=== PATIENT | male | born 1960 | race Caucasian/White ===

== ENCOUNTER 2024-02-15 11:09 | Day surgery (SDC) | payer MEDICARE, MEDICAID ==
[2024-02-15] VITALS (12 sets, daily range): BP systolic 118–163; BP diastolic 79–99; PULSE 53–64; RESP 13–17; TEMP 98; O2SAT 92–96
[~2024-02-15] VITALS: Ht 172.7 cm; Wt 100.6 kg
[~2024-02-15 11:09] MED LIST: ACET-1008 PO; ALBU8HFA PO; ASPI81TA96 PO; CALC500T11 PO; CYCL-394 PO; DOCU100C59 PO; DUTA0.5C40 PO; ESOM40CA17 PO; FLO0.4C PO; LACT1CAP65 PO; MELATONIN10 MG PO
[2024-02-15] MEDS ORDERED: nitroGLYCERIN 0.4mg SUBLingual tab SL PRN (11:40)
[2024-02-15] MEDS: diphenhydrAMINE 25mg capsule PO PRN (12:04)
[2024-02-15] MEDS: normal saline 1,000 ML IV SCH (12:05)
[2024-02-15] MEDS: LORazepam 0.5 MG tablet PO PRN (12:05)
[2024-02-15 12:07] LABS: BASOPHILS # (AUTO) 0.1 X10'3 (0-0.2); BASOPHILS % (AUTO) 0.5 % (0-1); EOSINOPHILS # (AUTO) 0.4 X10'3 (0-0.9); EOSINOPHILS % (AUTO) 3.4 % (0-6); HEMATOCRIT 39.5 % (42.0-52.0); HEMOGLOBIN 13.2 g/dl (14.0-17.9); LYMPHOCYTES # (AUTO) 1.4 X10'3 (1.1-4.8); LYMPHOCYTES % (AUTO) 11.3 % (21-51); MEAN CORPUSCULAR HEMOGLOBIN 28.6 PG (27.0-31.0); MEAN CORPUSCULAR HGB CONC 33.5 g/dL (33.0-36.5); MEAN CORPUSCULAR VOLUME 85.5 FL (78-98); MEAN PLATELET VOLUME 8.2 FL (7.4-10.4); MONOCYTES # (AUTO) 0.7 X10'3 (0-0.9); NEUTROPHILS # (AUTO) 9.5 X10'3 (1.8-7.7); NEUTROPHILS % (AUTO) 78.8 % (42-75); PLATELET COUNT 274 X10'3 (140-440); RED BLOOD COUNT 4.62 X10'6 (4.70-6.10); RED CELL DISTRIBUTION WIDTH 15.3 % (11.5-14.5); WHITE BLOOD COUNT 12.1 X10'3 (4.5-11.0)
[2024-02-15] MEDS ORDERED: AMLO5TAB16 PO (12:13)
[2024-02-15] MEDS ORDERED: CLON0.1T2 PO (12:13)
[2024-02-15] MEDS ORDERED: CAPT50TA4 PO (12:13)
[2024-02-15] MEDS ORDERED: MULT-1085 PO (12:13)
[2024-02-15] MEDS ORDERED: ALBU18HF2 INH (12:13)
[2024-02-15] MEDS ORDERED: POLY119P2 PO (12:13)
[2024-02-15] MEDS ORDERED: FLUT1BLS16 INH (12:13)
[2024-02-15] MEDS ORDERED: BISA-95 PO (12:13)
[2024-02-15] MEDS ORDERED: METO-411 PO (12:13)
[2024-02-15] MEDS ORDERED: TERB250T89 PO (12:13)
[2024-02-15] MEDS ORDERED: BACL10TA2 PO (12:13)
[2024-02-15] MEDS ORDERED: SILD100T70 PO (12:13)
[2024-02-15] MEDS ORDERED: HYDR12.55 PO (12:13)
[2024-02-15] MEDS ORDERED: CELE-148 PO (12:13)
[2024-02-15] MEDS ORDERED: QUININE PO (12:13)
[2024-02-15 12:21] LABS: ALBUMIN 3.3 G/DL (3.4-5.0); ANION GAP 6 (8-16); BLOOD UREA NITROGEN 16 MG/DL (7-18); BUN/CREATININE RATIO 17.6 (10.0-20.0); CALCIUM 8.7 MG/DL (8.5-10.1); CHLORIDE 104 MMOL/L (99-107); CREATININE 0.91 MG/DL (0.60-1.10); GLUCOSE 106 MG/DL (70-104); POTASSIUM 3.2 MMOL/L (3.5-5.1); SODIUM 141 MMOL/L (135-145); eCRCL 82 ML/MIN; eGFR 85 ML/MIN
[2024-02-15] MEDS ORDERED: potassium Cl 40MEQ/1/2NS 520ml 520 ML IV PRN (12:25)
[2024-02-15] MEDS ORDERED: potassium Cl 20 mEq SR tablet PO PRN (12:25)
[2024-02-15 12:26] LABS: APTT 33 SECONDS (22-32); INR 1.1 INR; PROTHROMBIN TIME 11.3 SECONDS (9.0-12.0)
[2024-02-15] MEDS ORDERED: LIDOcaine 1% 30ml preserv. free vial ONE (12:34)
[2024-02-15] MEDS: potassium Cl 20 mEq SR tablet PO PRN (12:34)
[2024-02-15] MEDS ORDERED: fentaNYL/PF 50MCG/1 ML 2ML syringe ONE (12:34)
[2024-02-15] MEDS ORDERED: iohexol 350MG/ML 100ml bottle IV ONE (12:34)
[2024-02-15] MEDS ORDERED: midazolam 1 mg/ML 2ml injection ONE ×2 (12:34→13:10)
[2024-02-15] MEDS ORDERED: iohexol 350 MG/ML 50ML vial IV ONE (12:36)
[2024-02-15] MEDS ORDERED: morphine 4 MG/ML inj SYRINge IV PRN (14:20)
[2024-02-15] MEDS ORDERED: proCHLORperazine 10 MG/2 ml inj IV PRN (14:20)
[2024-02-15] MEDS ORDERED: OXAZEpam 15mg capsule PO PRN (14:20)
[2024-02-15] MEDS ORDERED: HYDROcodone/acetaminophen 5mg/325mg tablet PO PRN (14:20)
[2024-02-15] MEDS: HYDROcodone/acetaminophen 10/325mg tab PO PRN (15:07)
[2024-02-15] MEDS: ondansetron/PF 4mg/2ml inj IV PRN (16:16)
[2024-02-15] MEDS ORDERED: ACETYLCYSTEINE 200 MG/1 ML 4 ML ORAL SOLUTION PO SCH (20:00)
== END 2024-02-15 19:30 | disposition home or self-care (01) ==
LOC: SSTAY O 11:09
PROVIDERS: ATTEND Internal Medicine Cardiovascular Disease
DX: R94.39 Abnormal result of other cardiovascular function study (principal); I25.119 Atherosclerotic heart disease of native coronary artery with unspecified angina pectoris; R94.31 Abnormal electrocardiogram [ECG] [EKG]; I10 Essential (primary) hypertension; J44.9 Chronic obstructive pulmonary disease, unspecified; G62.9 Polyneuropathy, unspecified; M19.90 Unspecified osteoarthritis, unspecified site; Z79.891 Long term (current) use of opiate analgesic; Z79.899 Other long term (current) drug therapy
CPT/HCPCS: 36415; 71046; 80048; 85025; 85610; 85730; 93005; 93458; 99152; 99153; A4615; A6258; C1760; C1769; J1644; J2250; J2405; J3010; J3490; J7030; Q0163; Q9967